=== PATIENT | female | born 1975 | race Caucasian/White ===

== ENCOUNTER 2017-11-11 19:46 | Emergency (ER) | payer OTHER ==
[2017-11-11 19:58] VITALS: BP 115/79
--- NOTE | 2017-11-11 20:23 | ER Document Report ---
ED Medical Screen (RME) - General Chief Complaint: Psych eval., SI Stated Complaint: PSYCH EVAL Time Seen by Provider: 11/11/17 20:19 Mode of Arrival: Ambulatory Information source: Patient Notes: 42-year-old female presents to ED for side suicidal ideations. She states she looked up online different ways to kill herself and 1 of them was that she could use sodium something she cannot remember what and give it to herself IV with her is diabetic needles. She states she will go to a hotel or motel first were no button would be able to find her. She states right now she is being oppressed by [employer] and wants to just end it all. She states she is a Mandaen but she has got chronic pain and does not be in a press by [employer] and she cannot take it anymore. She states she smokes a pack and half cigarettes a day she does not drink or do drugs normally all 3 weeks ago a friend gave her a marijuana joint and she took 3 puffs and then she said she had to come to the emergency room because she could not breathe. I have greeted and performed a rapid initial assessment of this patient. A comprehensive ED assessment and evaluation of the patient, analysis of test results and completion of medical decision making process will be conducted by an additional ED providers. TRAVEL OUTSIDE OF THE [place] IN LAST 30 DAYS: No - Related Data Allergies/Adverse Reactions: aripiprazole [From Abilify] Adverse Reaction (Verified 11/11/17 19:53) quetiapine [From Seroquel] Adverse Reaction (Verified 11/11/17 19:53) Past Medical History Neurological Medical History: Reports: Hx Migraine Psychiatric Medical History: Reports: Hx Bipolar Disorder Past Surgical History: Reports: Hx Vascular Surgery - cyst removal breast - Immunizations Hx Diphtheria, Pertussis, Tetanus Vaccination: No Physical Exam - Vital signs Vitals: Temp Pulse Resp BP Pulse Ox 98.9 F 114 H 14 115/79 96 11/11/17 19:55 11/11/17 19:55 11/11/17 19:55 11/11/17 19:55 11/11/17 19:55 Course - Vital Signs Vital signs: Temp Pulse Resp BP Pulse Ox 98.9 F 114 H 14 115/79 96 11/11/17 19:55 11/11/17 19:55 11/11/17 19:55 11/11/17 19:55 11/11/17 19:55
[2017-11-11 21:18] LABS: ABSOLUTE BASOPHILS # (AUTO) 0.1 10^3/uL (0.0-0.2); ABSOLUTE EOSINOPHILS # (AUTO) 0.1 10^3/uL (0.0-0.6); ABSOLUTE MONOCYTES (AUTO) 0.8 10^3/uL (0.1-1.4); ABSOLUTE NEUT (AUTO) 6.9 10^3/uL (1.7-8.2); BASOPHILS % (AUTO) 0.4 % (0-2); EOSINOPHILS % (AUTO) 0.9 % (0-6); HEMATOCRIT 41.2 % (36.0-47.0); HEMOGLOBIN 14.2 g/dL (12.0-15.5); LYMPHOCYTES % (AUTO) 33.7 % (13-45); MEAN CORPUSCULAR HEMOGLOBIN 30.6 pg (27.0-33.4); MEAN CORPUSCULAR HGB CONC 34.5 g/dL (32.0-36.0); MEAN CORPUSCULAR VOLUME 89 fl (80-97); PLATELET COUNT 345 10^3/uL (150-450); RED BLOOD COUNT 4.64 10^6/uL (3.72-5.28); TOTAL CELLS COUNTED % (AUTO) 100 %; WHITE BLOOD COUNT 11.9 10^3/uL (4.0-10.5)
[2017-11-11 21:25] LABS: BILIRUBIN,URINE NEGATIVE (NEGATIVE); COLOR,URINE YELLOW; GLUCOSE, URINE NEGATIVE (NEGATIVE); KETONES,URINE NEGATIVE (NEGATIVE); LEUKOCYTE ESTERASE,URINE NEGATIVE (NEGATIVE); NITRITE,URINE NEGATIVE (NEGATIVE); PROTEIN,URINE 30 mg/dL (NEGATIVE); URINE SPECIFIC GRAVITY 1.034
[2017-11-11 21:28] LABS: APPEARANCE,URINE HAZY
[2017-11-11 21:37] LABS: ALANINE AMINOTRANSFERASE 26 U/L (9-52); ALBUMIN 4.5 g/dL (3.5-5.0); ALKALINE PHOSPHATASE 105 U/L (38-126); ANION GAP 11 (5-19); ASPARTATE AMINO TRANSFERASE 16 U/L (14-36); BILIRUBIN,DIRECT 0.1 mg/dL (0.0-0.4); BILIRUBIN,TOTAL 0.2 mg/dL (0.2-1.3); BLOOD UREA NITROGEN 12 mg/dL (7-20); CALCIUM 9.7 mg/dL (8.4-10.2); CARBON DIOXIDE 22 mmol/L (22-30); CHLORIDE 108 mmol/L (98-107); GLUCOSE 93 mg/dL (75-110); POTASSIUM 4.2 mmol/L (3.6-5.0); SODIUM 140.8 mmol/L (137-145); URINE AMPHETAMINES SCREEN UNCONFIRMED POSITIVE; URINE BARBITURATES SCREEN NEGATIVE; URINE BENZODIAZEPINES SCREEN UNCONFIRMED POSITIVE; URINE COCAINE SCREEN NEGATIVE; URINE MARIJUANA (THC) SCREEN NEGATIVE; URINE METHADONE SCREEN NEGATIVE; URINE PHENCYCLIDINE SCREEN NEGATIVE
[2017-11-11 21:38] LABS: ACETAMINOPHEN < 10 ug/mL (10-30); ALCOHOL < 10 mg/dL (NONE DETECTED); SALICYLATE < 1.0 mg/dL (2.0-20.0)
--- NOTE | 2017-11-11 21:53 | ER Document Report ---
ED General - General Chief Complaint: Psych Problem Stated Complaint: PSYCH EVAL Time Seen by Provider: 11/11/17 20:19 Mode of Arrival: Ambulatory Notes: Patient is a 42-year-old female with a past medical history of depression, PTSD and anxiety who presents with increasing depression over the last several weeks that culminated in contemplation of suicide today. She contacted her psychiatrist's office and was referred to the emergency department for further assessment. Patient states that she has had similar episodes in the past and her depression is gotten out of control that have required inpatient hospitalization and she feels that she is at this point again today. She reports that due to her depression she has had poor hygiene and been unable to complete activities of daily living. She denies any specific suicidal ideation at this time and states clearly that her plans "do not make sense and I have no way to do them anyways". She states that she is planning to go to [facility] in the morning for inpatient commitment under the care of her psychiatrist. She states that she has no plans to harm herself tonight and will be in the custody of her the entire time. She denies any acute physical complaints. She has been taking all medications as directed. Nothing improves or worsens her symptoms. TRAVEL OUTSIDE OF THE [place] IN LAST 30 DAYS: No - Related Data Allergies/Adverse Reactions: aripiprazole [From Abilify] Adverse Reaction (Verified 11/11/17 19:53) quetiapine [From Seroquel] Adverse Reaction (Verified 11/11/17 19:53) Past Medical History - General Information source: Patient - Social History Smoking Status: Current Every Day Smoker Frequency of alcohol use: None Drug Abuse: None Lives with: Spouse/Significant other Family History: Reviewed & Not Pertinent Patient has suicidal ideation: No Patient has homicidal ideation: No Neurological Medical History: Reports: Hx Migraine Renal/ Medical History: Denies: Hx Peritoneal Dialysis Psychiatric Medical History: Reports: Hx Bipolar Disorder Past Surgical History: Reports: Hx Vascular Surgery - cyst removal breast - Immunizations Hx Diphtheria, Pertussis, Tetanus Vaccination: No Review of Systems - Review of Systems Notes: Constitutional: Negative for fever. HENT: Negative for sore throat. Eyes: Negative for visual changes. Cardiovascular: Negative for chest pain. Respiratory: Negative for shortness of breath. Gastrointestinal: Negative for abdominal pain, vomiting or diarrhea. Genitourinary: Negative for dysuria. Musculoskeletal: Negative for back pain. Skin: Negative for rash. Neurological: Negative for headaches, weakness or numbness. 10 point ROS negative except as marked above and in HPI. Physical Exam - Vital signs Vitals: Temp Pulse Resp BP Pulse Ox 98.9 F 114 H 14 115/79 96 11/11/17 19:55 11/11/17 19:55 11/11/17 19:55 11/11/17 19:55 11/11/17 19:55 Interpretation: Tachycardic Notes: PHYSICAL EXAMINATION: GENERAL: Well-appearing, well-nourished and in no acute distress. HEAD: Atraumatic, normocephalic. EYES: Pupils equal round and reactive to light, extraocular movements intact, sclera anicteric, conjunctiva are normal. ENT: nares patent, oropharynx clear without exudates. Moist mucous membranes. NECK: Normal range of motion, supple without lymphadenopathy LUNGS: Breath sounds clear to auscultation bilaterally and equal. No wheezes rales or rhonchi. HEART: Regular rate and rhythm without murmurs ABDOMEN: Soft, nontender, normoactive bowel sounds. No guarding, no rebound. No masses appreciated. EXTREMITIES: Normal range of motion, no pitting or edema. No cyanosis. NEUROLOGICAL: No focal neurological deficits. Moves all extremities spontaneously and on command. PSYCH: Anxious, tearful SKIN: Warm, Dry, normal turgor, no rashes or lesions noted. Course - Re-evaluation Re-evalutation: 11/11/17 21:51 Patient presents with passive suicidal ideation and progressively worsening depression over the last several weeks but denies any specific plans or means to complete suicide. She has already contacted her psychiatric services and is scheduled to go to [facility] in the morning. Her is at the bedside and verifies that he will monitor her closely tonight make sure that she does not make any attempts to harm herself although the patient repeatedly states she has no intention of doing so and is looking forward to a period of inpatient hospitalization for stabilization. She denies any acute medical complaints. Her medical screening exam and labs unremarkable. She is cleared for psychiatric evaluation in the morning at [facility]. She does not meet involuntary commitment criteria and will be discharged in the emergency department. - Vital Signs Vital signs: Temp Pulse Resp BP Pulse Ox 98.9 F 114 H 14 115/79 96 11/11/17 19:55 11/11/17 19:55 11/11/17 19:55 11/11/17 19:55 11/11/17 19:55 - Laboratory Result Diagrams: 11/11/17 20:40 11/11/17 20:40 Laboratory results interpreted by me: 11/11/17 11/11/17 11/11/17 20:40 20:40 20:40 WBC 11.9 H Chloride 108 H Urine Protein 30 H Urine Blood SMALL H Urine Urobilinogen 2.0 H Salicylates < 1.0 L Acetaminophen < 10 L - EKG Interpretation by Me Additional EKG results interpreted by me: 11/11/17 21:52 Sinus tachycardia. Rate 104. No ST elevations or depressions. QTC is 427. Discharge - Discharge Clinical Impression: Passive suicidal ideations Major depression Qualifiers: Major depression recurrence: recurrent Active/Remission status: currently active Major depression episode severity: severe Psychotic features: without psychotic features Qualified Code(s): F33.2 - Major depressive disorder, recurrent severe without psychotic features Condition: Good Disposition: HOME, SELF-CARE Additional Instructions: Please return if you have thoughts of wanting to hurt yourself, hurt others, or have any other symptoms that are concerning to you.
--- NOTE | 2017-11-11 22:30 | EKG REPORT ---
SEVERITY:- OTHERWISE NORMAL ECG - SINUS TACHYCARDIA : Confirmed by: Kamran Chacon MD 11-Nov-2017 22:29:34
== END 2017-11-11 22:30 | disposition home or self-care (01) ==
LOC: ER 19:46
DX: R45.851 Suicidal ideations (principal); F33.2 Major depressive disorder, recurrent severe without psychotic features; F43.10 Post-traumatic stress disorder, unspecified; F41.9 Anxiety disorder, unspecified; F17.200 Nicotine dependence, unspecified, uncomplicated
CPT/HCPCS: 36415; 80053; 80307; 81001; 84703; 85025; 93005; 93010; 99284

== ENCOUNTER 2018-03-01 08:43 | Emergency (ER) | payer OTHER ==
[2018-03-01] MEDS ORDERED: NORMAL SALINE 1000 ML 1,000 ML IV ONE (09:16)
--- NOTE | 2018-03-01 09:39 | ER Document Report ---
ED Psych Disorder / Suicide - General TRAVEL OUTSIDE OF THE [place] IN LAST 30 DAYS: No <JG COTTO - Last Filed: 03/01/18 19:10> <MIAN CUI - Last Filed: 03/02/18 11:57> - General Chief Complaint: Psych Problem Stated Complaint: PSYCH EVAL Time Seen by Provider: 03/01/18 09:13 Notes: Patient is being evaluated for an overdose of multiple medications over the past 24 hours. Patient says she started taking pills yesterday afternoon and has done so throughout the night. She is depressed over a very bad relationship with her . Patient says that she "wants to end my life" and "do not want to live anymore". She took an overdose about 10 years ago, but nothing since then. She says she "feels like I " ever since she took that overdose 10 years ago. Patient says she began taking blood pressure medicines belonging to her yesterday afternoon., Took an unknown number. Later in the day she began taking some of her medications which include Skelaxin, about 6 pills. Also has been taking Cipro about 5 pills every hour throughout the night. She was diagnosed with a kidney infection a week ago and that is how she comes to have the Cipro. She did not take it as prescribed, but was storing it up for taking as an overdose now. She sees a local psychiatrist, Dr. Rolon. Her diagnoses include anxiety, bipolar disorder with depression, PTSD, ADHD. (JG COTTO) - Related Data Allergies/Adverse Reactions: aripiprazole [From Abilify] Adverse Reaction (Verified 11/11/17 19:53) quetiapine [From Seroquel] Adverse Reaction (Verified 11/11/17 19:53) Past Medical History - Social History Smoking Status: Current Every Day Smoker Chew tobacco use (# tins/day): No Frequency of alcohol use: None - Patient says she never drinks alcohol, but did drink some since yesterday with her overdose. Drug Abuse: None Family History: Reviewed & Not Pertinent Patient has suicidal ideation: Yes Patient has homicidal ideation: No - Past Medical History Cardiac Medical History: Reports: Other - History fast heartbeat that she "always have". Worked up with echo, etc=neg Denies: Hx Coronary Artery Disease Neurological Medical History: Reports: Hx Migraine Endocrine Medical History: Denies: Hx Diabetes Mellitus Type 1, Hx Diabetes Mellitus Type 2 Musculoskeltal Medical History: Reports Hx Fibromyalgia, Reports Other - Chronic back pain from scoliosis and fibromyalgia Psychiatric Medical History: Reports: Hx Bipolar Disorder, Hx Depression Past Surgical History: Reports: Hx Vascular Surgery - cyst removal breast - Immunizations Hx Diphtheria, Pertussis, Tetanus Vaccination: No <JG COTTO - Last Filed: 03/01/18 19:10> Review of Systems <JG COTTO - Last Filed: 03/01/18 19:10> <MIAN CUI - Last Filed: 03/02/18 11:57> - Review of Systems Notes: REVIEW OF SYSTEMS: CONSTITUTIONAL : Denies fever. EENT: Denies eye, ear, nose or mouth or throat pain or other symptoms. CARDIOVASCULAR: Denies chest pain. Patient says she always has a rapid heartbeat. Says she has been worked up including echocardiograms, thyroid testing, etc. all negative. On no medications for the rapid heart rate. RESPIRATORY: Denies cough, chest congestion, or shortness of breath. GASTROINTESTINAL: Nauseated. Denies abdominal pain, vomiting, or diarrhea. GENITOURINARY: Has burning and pain with urination and in the bladder region. Some urinary frequency, no blood in urine. MUSCULOSKELETAL: Chronic back and neck pain, as seeing [facility] pain management. SKIN: Denies rash or skin lesions. NEUROLOGICAL: Denies LOC or altered mental status. Denies headache. Denies sensory loss or motor deficits. ALL OTHER SYSTEMS REVIEWED AND NEGATIVE. (JG COTTO) Physical Exam - Vital signs Interpretation: Tachycardic - Heart rate 126 in triage. <JG COTTO - Last Filed: 03/01/18 19:10> <MIAN CUI - Last Filed: 03/02/18 11:57> - Vital signs Vitals: Temp Pulse Resp BP Pulse Ox 98.0 F 124 H 16 98/62 L 98 03/01/18 13:00 03/01/18 13:00 03/01/18 13:00 03/01/18 13:00 03/01/18 13:00 - Notes Notes: PHYSICAL EXAMINATION: GENERAL: Well-appearing, tearful and sad and depressed appearing. HEAD: Atraumatic, normocephalic. EYES: Pupils equal round and reactive to light, extraocular movements intact. ENT: oropharynx clear without exudates. Moist mucous membranes. NECK: Normal range of motion, supple. LUNGS: Breath sounds clear and equal bilaterally. HEART: Regular rate at 120 by me at bedside. No murmurs heard. ABDOMEN: Soft, nontender. No guarding or rebound. No masses. BACK: Mild generalized muscular tenderness of the entire back. EXTREMITIES: Normal range of motion without pain. NEUROLOGICAL: Normal speech, normal gait. Normal sensory, motor, and reflex exams. Awake, alert, and oriented x3. Cranial nerves normal. PSYCH: Depressed, tearful, anxious. SKIN: Warm, dry, no rashes. (JG COTTO) Course - Laboratory Result Diagrams: 03/01/18 10:35 03/01/18 10:35 - EKG Interpretation by Me EKG shows normal: Sinus rhythm Rate: Tachycardia <JG COTTO - Last Filed: 03/01/18 19:10> - Laboratory Result Diagrams: 03/01/18 10:35 03/01/18 10:35 <MIAN CUI - Last Filed: 03/02/18 11:57> - Re-evaluation Re-evalutation: 03/01/18 19:06 Nurse makes me aware that the patient's blood pressures have been running in the 90s. She continues to be tachycardic, but we believe this to be a long- term chronic problem for this patient as she seems to be very reliable about her medical history. She still has an IV site open from EMS so I am going to give her a couple of liters of saline. Patient originally told me about being diagnosed a week ago with a UTI and being given Cipro which she did not take and stored up and took over the past 12 hours or so before coming to the emergency department. That quantity of Cipro might of been sufficient to resolve a UTI. However, I have ordered a urine culture on the specimen from earlier today. It is concerning for possible UTI although it is just a clean- catch specimen and not convincing to me at this point. We will see what the culture shows. I am giving her a gram of Rocephin IV, and that should cover for 24 hours while we see if anything is growing on the patient's culture. Patient is complaining of some back pain, but she says this is her back pain that she sees pain management for. I do not think this is pyelonephritis pain. Patient did have a white count elevation to 18,000 which did not seem to have a source that I could find. She has not had a fever while here in the emergency department. In summary, patient is going to get a couple of liters of saline, a gram of Rocephin IV, urine culture has been ordered. Back pain will be treated with ibuprofen. (JG COTTO) - Vital Signs Vital signs: Temp Pulse Resp BP Pulse Ox 98.2 F 88 18 91/44 L 98 03/02/18 06:20 03/02/18 06:20 03/02/18 06:20 03/02/18 06:20 03/02/18 06:20 - Laboratory Laboratory results interpreted by me: 03/01/18 03/01/18 03/01/18 10:35 10:35 11:30 WBC 18.1 H Seg Neutrophils % 85.2 H Lymphocytes % 8.5 L Absolute Neutrophils 15.4 H Chloride 109 H Creatinine 1.36 H Est GFR ( Amer) 51 L Est GFR (Non-Af Amer) 42 L Urine Protein 30 H Salicylates < 1.0 L Acetaminophen < 10 L - EKG Interpretation by Me Additional EKG results interpreted by me: 03/01/18 09:[address] changes. (JG COTTO) Discharge <JG COTTO - Last Filed: 03/01/18 19:10> <MIAN CUI - Last Filed: 03/02/18 11:57> - Discharge Clinical Impression: Overdose, Bipolar 1 disorder Condition: Stable Disposition: HOME, SELF-CARE Additional Instructions: OVERDOSE: You have taken more medication than you should have. After your evaluation and care, it is felt that your overdose is not likely to be harmful or of any significant consequences to you and you are being discharged. In the future, you should be careful not to take more medications than what is prescribed for you. Although your overdose does not seem to be of any danger to you at this time, if you develop any unusual or unexpected symptoms after your discharge, you should return to the Emergency Department immediately for re-evaluation. DEPRESSION: Your evaluation reveals that you have mental depression. While symptoms may be vague, they often include disturbance of sleep, fatigue, loss of appetite , and general loss of interest in life. While depression may be a side effect of drugs, or a reaction to a major change in your life, many cases have no known cause. If depression is acute, and related to a major loss in your life, you can expect it to clear completely with time. If you have been depressed a long time , are prone to repeated bouts of depression or low mood, or have been thinking of suicide, get help. Depression can be treated with anti-depressant medication and counselling. Long-term depression will often take a few weeks to clear, even with appropriate medication. Follow-up care is important. SUICIDAL IDEATION: Suicidal ideation is a common medical term for thoughts about suicide, which may be as detailed as a formulated plan, without the suicidal act itself. Although most people who undergo suicidal ideation do not commit suicide, some go on to make suicide attempts. The range of suicidal ideation varies greatly from fleeting to detailed planning, role playing, and unsuccessful attempts. While thoughts about suicide are common, most people do not carry out serious actions to commit suicide. Based upon your evaluation and discussion with you, we do not believe you are currently at risk to act upon your thoughts of suicide. You have agreed to return to the Emergency Department, at any time , if you feel inclined to act upon your suicidal thoughts. BIPOLAR DISORDER: Bipolar disorder is also called manic-depressive disorder. Depression alternates with brain hyperactivity called ho. Each phase lasts from several days to a few weeks. We don't know exactly what causes bipolar disorder , but it's treatable. During the "manic phase," you may feel elated and energetic. You may have racing thoughts, rapid speech, increased activity, and grandiose ideas. During this time, you may not realize how poor your judgement is. Inappropriate spending, drug abuse, excessive alcohol use, marriage problems, and irresponsible sexual behavior are common during the manic phase. During the "depressive phase," you might feel depressed, guilty, worthless , fatigued, and unable to concentrate. You might have thoughts of suicide. Good treatments are available for bipolar disorder. [place] is a classic drug for bipolar disorder, and is still often useful. If the manic phase is very mild, an antidepressant alone can be prescribed. If the manic phase is very severe, an antipsychotic medicine (such as Haldol) may be needed. The treatment must be matched to your symptoms, so it's important to work closely with your psychiatric care provider. Contact your physician, the hospital emergency center, crisis line, or your counsellor if you are losing control or having self-destructive thoughts. FOLLOW-UP CARE: You should follow up with your outpatient providers, for both medication management and therapy, at [facility] ([facility]) first thing Sunday (03/05/18) morning. If you experience worsening or a significant change in your symptoms, notify the physician immediately, contact mobile crisis or return to the Emergency Department at any time for re- evaluation. Referrals: MIKE ROCHA JR, MD [Primary Care Provider] - Follow up as needed [facility] [Outside] - 03/05/18
[2018-03-01 10:46] LABS: ABSOLUTE BASOPHILS # (AUTO) 0.1 10^3/uL (0.0-0.2); ABSOLUTE LYMPHOCYTES (AUTO) 1.5 10^3/uL (0.5-4.7); ABSOLUTE NEUT (AUTO) 15.4 10^3/uL (1.7-8.2); BASOPHILS % (AUTO) 0.5 % (0-2); EOSINOPHILS % (AUTO) 0.1 % (0-6); HEMATOCRIT 38.8 % (36.0-47.0); HEMOGLOBIN 13.1 g/dL (12.0-15.5); LYMPHOCYTES % (AUTO) 8.5 % (13-45); MEAN CORPUSCULAR HEMOGLOBIN 30.7 pg (27.0-33.4); MEAN CORPUSCULAR HGB CONC 33.8 g/dL (32.0-36.0); MEAN CORPUSCULAR VOLUME 91 fl (80-97); MONOCYTES % (AUTO) 5.7 % (3-13); PLATELET COUNT 324 10^3/uL (150-450); RED BLOOD COUNT 4.27 10^6/uL (3.72-5.28); RED CELL DISTRIBUTION WIDTH 13.5 % (11.5-14.0); SEGMENTED NEUTROPHILS % (AUTO) 85.2 % (42-78); TOTAL CELLS COUNTED % (AUTO) 100 %; WHITE BLOOD COUNT 18.1 10^3/uL (4.0-10.5)
[2018-03-01 11:11] LABS: ALANINE AMINOTRANSFERASE 25 U/L (9-52); ALBUMIN 3.9 g/dL (3.5-5.0); ALKALINE PHOSPHATASE 87 U/L (38-126); ANION GAP 14 (5-19); ASPARTATE AMINO TRANSFERASE 26 U/L (14-36); BILIRUBIN,DIRECT 0.3 mg/dL (0.0-0.4); BILIRUBIN,TOTAL 0.3 mg/dL (0.2-1.3); BLOOD UREA NITROGEN 15 mg/dL (7-20); CALCIUM 9.5 mg/dL (8.4-10.2); CARBON DIOXIDE 22 mmol/L (22-30); CHLORIDE 109 mmol/L (98-107); GLUCOSE 89 mg/dL (75-110); POTASSIUM 4.8 mmol/L (3.6-5.0); SODIUM 144.6 mmol/L (137-145); TOTAL PROTEIN 6.5 g/dL (6.3-8.2)
[2018-03-01 11:16] LABS: ACETAMINOPHEN < 10 ug/mL (10-30); ALCOHOL < 10 mg/dL (NONE DETECTED); SALICYLATE < 1.0 mg/dL (2.0-20.0)
[2018-03-01 11:27] LABS: FREE T4 (FREE THYROXINE) 0.86 ng/dL (0.78-2.19)
[2018-03-01 11:41] LABS: THYROID STIMULATING HORMONE 2.3 uIU/mL (0.47-4.68)
[2018-03-01 12:30] LABS: URINE AMPHETAMINES SCREEN NEGATIVE; URINE BARBITURATES SCREEN NEGATIVE; URINE COCAINE SCREEN NEGATIVE; URINE MARIJUANA (THC) SCREEN NEGATIVE; URINE METHADONE SCREEN NEGATIVE; URINE PHENCYCLIDINE SCREEN NEGATIVE
[2018-03-01 12:40] LABS: AMORPHOUS SEDIMENT,URINE TRACE /HPF; APPEARANCE,URINE CLOUDY; BILIRUBIN,URINE NEGATIVE (NEGATIVE); COLOR,URINE YELLOW; GLUCOSE, URINE NEGATIVE (NEGATIVE); KETONES,URINE NEGATIVE (NEGATIVE); LEUKOCYTE ESTERASE,URINE NEGATIVE (NEGATIVE); NITRITE,URINE NEGATIVE (NEGATIVE); PROTEIN,URINE 30 mg/dL (NEGATIVE); URINE SPECIFIC GRAVITY 1.006; UROBILINOGEN,URINE NEGATIVE mg/dL (<2.0)
--- NOTE | 2018-03-01 12:52 | PSYCHOLOGICAL NOTE ---
Psych Note - Psych Note Psych Note: Reason for Consult: Intentional overdose Consent permissions: son, Pilo, Pt presents to the ED via EMS for complaints of possible overdose via Cipro. Pt states that she "googled the effects of Cipro" and found that it would shut down her kidneys. Pt was given Cipro for a current kidney infection. Pt very tearful at this time. Pt stating "my marriage is over. I have nothing to live for. I have no skills." Pt in a dress and states that "I couldn't go to the republican and my lied to me." Pt states she took the 500mg Cipro, 5 pills at a time every hour. Patient disclosed that she came to [facility] ED because she "tried to take my life." Patient reports that she overdosed on medications while drinking alcohol. She disclosed she slowly took medications over multiple hours and thinks that she in total took 18 Cipro about 5 muscle relaxers and an unknown amount of blood pressure medication. Patient reports that her is a good person and that she is a good portion however together they are "terrible." Patient reports she has been 25 years however "he wants me gone." She disclosed the calls her names such as "garbage." She disclosed that she is very scared because she is never worked and has no family said no way to support herself. Patient states that she goes to [facility] for an outpatient provider and has been working very closely with Dr. Rolon because of her chronic depression. Clinician attempted contact to patient's son, Pilo, no answer. Patient is semi-alert and orientated to person, place, time and circumstance. Mood is dysphoric with tearful affect. Patient endorses suicidal ideation with intentional overdose. Patient denies homicidal ideation. Delusions are absent behaviors congruent with intact reality based presentation i.e. organized linear thought process. Eye contact is poor clinician notes patient is demonstrating difficulty in focusing. Patient also mentions that her stomach is hurting. Conversational speech is very difficult to understand because patient becomes very tearful at times crying hysterically. Attention and concentration are poor. Insight, judgment, impulse control are poor. Medication recommendations per [facility]'s contracted psychiatrist Dr. Ulisses MD are as follows 1. Continue patient's home medication of Pristiq 100 mg daily for depression 2. Start BuSpar 5 mg every morning and 10 mg every afternoon for anxiety 3. Start Zyprexa 2.5 mg every morning and 5 mg every afternoon for mood stabilization 4. Start Cogentin 1 mg daily for prevention of possible side effects of Zyprexa Diagnoses 311 (F 32.9) unspecified depressive disorder per history provided by patient 300.00 (F41.9) unspecified anxiety disorder per history provided by patient 309.8 (F43.10) post manic stress disorder per history provided by patient R/0 296.80 (F31.9) unspecified bipolar and related disorder Impression\\plan: Patient is recommended for involuntary commitment. Patient presented to [facility] ED in a "republican dress" after intentional overdose with intent to kill herself. Patient reports taking multiple medications over multiple hours while drinking alcohol. Patient is very tearful at times difficult to understand. Clinician notes patient does not want her to come to the hospital however is requesting her son Pilo to come. She states her son is 20 years old. Patient is currently not medically cleared. Dr. Tay was consulted and the care management this patient; attending physician is in agreement with recommendations and disposition.
--- NOTE | 2018-03-01 13:12 | EKG REPORT ---
SEVERITY:- BORDERLINE ECG - SINUS TACHYCARDIA BORDERLINE T ABNORMALITIES, DIFFUSE LEADS : Confirmed by: Kamran Chacon MD 01-Mar-2018 13:11:40
[2018-03-01] MEDS ORDERED: BUSPIRONE HCL 10 MG TABLET PO SCH ×2 (13:15→18:00)
[2018-03-01] MEDS ORDERED: OLANZAPINE 2.5 MG TABLET PO SCH (13:15)
[2018-03-01] MEDS ORDERED: BENZTROPINE MESYLATE 1 MG TABLET PO SCH (13:15)
[2018-03-01] MEDS ORDERED: BENZTROPINE MESYLATE 1 MG TABLET PO ONE (15:00)
[2018-03-01] MEDS ORDERED: OLANZAPINE 2.5 MG TABLET PO ONE (15:00)
[2018-03-01] MEDS ORDERED: BUSPIRONE HCL 10 MG TABLET PO ONE (15:00)
[2018-03-01] MEDS ORDERED: OLANZAPINE 5 MG TABLET PO SCH (18:00)
[2018-03-01] MEDS ORDERED: HYDROCODONE/ACETAMINOPHEN 5-325 MG TABLET PO PRN (18:57)
[2018-03-01] MEDS ORDERED: CEFTRIAXONE INJ 1000 MG VIAL IV ONE (19:00)
[2018-03-01] MEDS ORDERED: NORMAL SALINE 1000 ML 1,000 ML IV PRN (19:01)
[2018-03-01] MEDS: IBUPROFEN 400 MG TABLET PO PRN (19:09)
[2018-03-02] MEDS: IBUPROFEN 400 MG TABLET PO PRN ×2 (02:27→10:27)
[2018-03-02] MEDS ORDERED: OLANZAPINE 2.5 MG TABLET PO SCH (08:00)
[2018-03-02] MEDS ORDERED: BUSPIRONE HCL 10 MG TABLET PO SCH (08:00)
--- NOTE | 2018-03-02 09:55 | ER Document Report ---
Doctor's Note Notes: 03/02/18 09:55 This is a follow-up evaluation: Primary diagnosis-suicidal ideation, going through separation Patient is here for the above reason, has been doing well, currently has --no complaint. On examination-vitals reviewed in the chart. General exam: Alert oriented 3 not in any acute distress HEENT: Normocephalic atraumatic pupils are equal reactive to light, Lungs-clear breath sounds no rales or wheezing. Cardiovascular system: Normal S1-S2 no murmurs. Gastrointestinal: Normal breath sounds, no organomegaly positive bowel sounds. Genitourinary: Skin: No lesions noted, no rash Psychiatric: Diagnoses: Suicidal Plan: Waiting for mental health to evaluate and clear
[2018-03-02] MEDS ORDERED: BENZTROPINE MESYLATE 1 MG TABLET PO SCH (10:00)
--- NOTE | 2018-03-02 11:50 | PSYCHOLOGICAL NOTE ---
Psych Note - Psych Note Psych Note: Reason for consult: Re-evaluation, OD via Cipro Contact Permission: Jagruti ([phone]) Patient is a 42 year old female who was held overnight on a 24 hour IVC Petition due to a reported OD of Cipro and a change in medication regimen. Today she reported "I was so tired yesterday I had on my constitution party dress but wasn't allowed to go." She acknowledged she was still tired today and said she hadn't talked to her yet. She was focused on talking with her and commented he had come to the ED but staff would not allow him to come back to her room. When confronted that she had mentioned a trigger was her marriage being over she commented "he helps to make the decisions, is all I know and takes care of her/family financially. She identified she is diagnosed with Bipolar I Disorder, ANJU, PTSD and ADHD. She said her outpatient providers are Yobany Stockton for therapy and Dr. Guevara for medication management both at [facility]. She stated she is currently prescribed Pristiq, Abilify, Xanax and a new medication that she described as a small white pill meant to help with ADHD but she does not think it is an amphetamine since Adderall make her heart rate increase. She identified the medications brought in were old medications ( Trazodone, Prazosin) from out of her bedroom that need to be disposed of. She noted she had been going to [facility] for many years due to back pain (she had been requesting only Ibuprofen until this AM when she said if it does not work in a couple hours she may need the Moran she is prescribed). She mentioned her first major break down where she began "rapid cycling" was 11 years ago (notes 5 hospitalizations in a 2 month period. She reported feeling very depressed and was supposed to see her outpatient provider this week but had a kidney infection so did not go. She denied current SI and stated " whatever I did was in a split second I didn't think." She noted she was just hospitalized at [facility] 3-4 months ago. Patient was alert and oriented to person. place and situation. Mood was depressed with congruent affect as evidenced by being tearful. She was able to manage the crying that took place a couple times. She denied current SI/HI. She did not appear to be responding to internal stimuli as evidenced by fair eye contact, answering questions appropriately when addressed, staying on topic and carrying on dialogue conversation. Thought processes were linear. Conversational speech was within normal limits for rate, tone and prosody. Intellectual abilities are estimated to be average. Insight, judgment and impulse control were fair as evidenced by reflection of crisis, triggering events and how she wants to move forward with still involved. Patient gave verbal consent to contact her . He noted the crisis behavior is typical of patient when she feels "jilted or not included whether actual or perceived." He noted she sees a counselor and medication provider regularly and he knows this because he takes her. He stated Dr. Guevara has been changing medications the past couple months due to an increased heart rate. He commented "the past 10 years patient is 100% better than she has been previously but still has behaviors." He stated she has "bouts of depression and ho where a controlled environment like the ED or inpatient hospitalization is where she does well but as soon as she gets home she does not maintain the same." He noted she cannot hold a job and their children (2 adult aged and one 13 year old) are even used to her behaviors to the extent the adult female child rarely comes around. stated "she has no desire to change and seems to enjoy wallowing in her misery." He stated she has "Bipolar and Depression issues." He confirmed patient being in pain management and that she takes the medications they prescribed as directed if not less. He described her as a home body who "stays inside, lays on couch and watches TV." He stated " deep down in her heart she does not want to ." He stated he had gone out of town for 2 days, which patient knew ahead of time, was staying with his parents in [place] (which patient had been made aware of) and there was a special occasion event there. He stated he would be in charge of medications and administration so that patient does not have access. Diagnosis: 295.55 (F31.75) Bipolar I (by History), Current or most recent episode depressed , In partial remission R/O 301. 83 (F60.3) Borderline Personality Disorder Impression/Plan: Patient is cleared from acute psychiatric services. Recommendation to allow 24 hours petition to lapse or rescind. Patient denied current SI/HI and there is no observed psychosis. Patient has outpatient services (therapy and medication management) at [facility] and has been followed more closely the past couple months due to medications changes per . Patient to follow up with [facility] first thing Sunday morning (03/05/18) as a walk in. Provided outpatient resource sheet with emphasis on MCM numbers and documented to do the walk in 03/05/18. Completed patient referral form and faxed to [facility] for care coordination/continuity of care given medication changes. agreed to have control over medications and administration. Consulted with Dr. Tay regarding the management and care of patient. ED Physician in agreement with recommendations. Medication recommendations made by the psychiatric medication provider, Dr. Ulisses PATEL, include: Provide scripts for medications administered in the ED Zyprexa 2.5 MG in the morning for mood stabilization and impulse control Zyprexa 5MG at night for mood stabilization and impulse control Buspar 5MG in the morning for anxiety Buspar 10MG at night for sleep, anxiety Cogentin 1MG daily to curb side effects from antipsychotic (Zyprexa).
[2018-03-02 12:51] VITALS: BP 98/51
== END 2018-03-02 12:51 | disposition home or self-care (01) ==
LOC: ER 08:43
DX: F32.9 Major depressive disorder, single episode, unspecified (principal); R45.851 Suicidal ideations; R03.0 Elevated blood-pressure reading, without diagnosis of hypertension; T42.8X2A Poisoning by antiparkinsonism drugs and other central muscle-tone depressants, intentional self-harm, initial encounter; T36.8X2A Poisoning by other systemic antibiotics, intentional self-harm, initial encounter; F17.200 Nicotine dependence, unspecified, uncomplicated; R11.0 Nausea; G89.29 Other chronic pain; M54.9 Dorsalgia, unspecified; M54.2 Cervicalgia; R00.0 Tachycardia, unspecified; F31.9 Bipolar disorder, unspecified; F41.9 Anxiety disorder, unspecified; F43.10 Post-traumatic stress disorder, unspecified
CPT/HCPCS: 93005; 99285; 96365; 36415; 87086; 84439; 80307 ×4; 84443; 85025; 80053; 81001; 93010; J3490 ×4; J0696; J7030